=== PATIENT | female | born 1985 | race Hispanic/Latino ===

== ENCOUNTER 2020-09-06 10:31 | Inpatient (IN) | payer BC ==
[~2020-09-06] VITALS: Ht 157.5 cm; Wt 94.2 kg
[~2020-09-06 10:31] MED LIST: CEFD300C3 PO; D-ME118S56 PO; IBUP-2784 PO; LEVO500T89 PO; ONDA-104 PO
[2020-09-06] MEDS ORDERED: KETOROLAC TROMETHAMINE 30MG/ML ONE (11:23)
[2020-09-06 11:26] LABS: BASOPHILS % (AUTO) 0.6 % (0.0-5.0); EOSINOPHILS % (AUTO) 2.4 % (0.0-8.0); HEMATOCRIT 44.8 % (36-48); LYMPHOCYTES % (AUTO) 24.5 % (21.0-51.0); MEAN CORPUSCULAR HGB CONC 33.5 g/dL (32.0-36.0); MEAN CORPUSCULAR VOLUME 83.7 fL (79-99); NEUTROPHILS % (AUTO) 64.3 % (40.0-77.0); PLATELET COUNT (AUTO) 171 K/uL (130-400); RED BLOOD CELL COUNT(AUTO) 5.35 MIL/uL (4.00-5.50); RED CELL DISTRIBUTION WIDTH 13.5 % (11.0-15.5); WHITE BLOOD COUNT (AUTO) 6.5 K/uL (4.8-10.8)
[2020-09-06 11:28] LABS: BILIRUBIN,URINE Negative (NEGATIVE); COLOR,URINE Yellow (YELLOW); GLUCOSE, URINE (UA) Negative (NEGATIVE); KETONES,URINE Negative (NEGATIVE); LEUKOCYTE ESTERASE ,URINE Small (NEGATIVE); NITRATE,URINE Negative (NEGATIVE); OCCULT BLOOD,URINE Large (NEGATIVE); PROTEIN,URINE POS 1+ mg/dL (NEGATIVE)
[2020-09-06 11:29] LABS: APPEARANCE,URINE SLIGHTLY CLOUDY (CLEAR)
[2020-09-06 11:31] LABS: HCG,QUAL RESULT NEGATIVE (NEGATIVE)
[2020-09-06 11:35] LABS: CREATININE 0.9 mg/dL (0.5-1.5); POTASSIUM 4.2 mmol/L (3.5-5.1)
[2020-09-06 11:40] LABS: ALBUMIN 4.2 g/dL (3.5-5.0); BILIRUBIN,TOTAL 0.6 mg/dL (0.2-1.0); TOTAL PROTEIN, SERUM 8.4 g/dL (6.0-8.3)
[2020-09-06 11:54] LABS: RBC,URINE 26-50 /HPF (0-1)
[2020-09-06 11:55] LABS: BACTERIA,URINE Moderate /HPF (None Seen)
[2020-09-06] MEDS ORDERED: IOHEXOL-350 75 ML VIAL IV ONE (12:13)
[2020-09-06] MEDS ORDERED: CEFTRIAXONE SODIUM 1 GM ONE (12:55)
[2020-09-06] MEDS ORDERED: ONDANSETRON HCL 4 MG/2 ML VIAL ONE (14:31)
[2020-09-06] MEDS ORDERED: MORPHINE SULFATE 4 MG/1ML SYG ONE (14:31)
[2020-09-06] MEDS ORDERED: TAMSULOSIN HCL 0.4 MG CAP.ER.24H PO SCH (16:30)
[2020-09-06] MEDS ORDERED: LACTULOSE 20 GM/30 ML UDCUP PO PRN (16:30)
[2020-09-06] MEDS ORDERED: ACETAMINOPHEN 325 MG TAB PO PRN (16:30)
[2020-09-06] MEDS: SODIUM CHLORIDE 0.9% 1000ML 1,000 ML IV SCH ×2 (16:30→18:00)
[2020-09-06] MEDS ORDERED: MORPHINE SULFATE 2 MG/ML 1ML SYG IV PRN (16:30)
[2020-09-06] MEDS: CEFTRIAXONE SODIUM 1 GM IV SCH (16:30)
[2020-09-06] MEDS ORDERED: HYDROCODONE/ACETAMINOPHEN 5/325 MG TAB PO PRN (16:30)
[2020-09-06 18:02] VITALS: BP 114/74
[2020-09-06] MEDS ORDERED: VITA400C73 PO (18:18)
[2020-09-06] MEDS ORDERED: METF-446 PO (18:18)
[2020-09-06] MEDS ORDERED: MEDR10TA11 PO (18:18)
[2020-09-06] MEDS ORDERED: ASCO500C18 PO (18:18)
[2020-09-06 19:37] VITALS: BP 118/69
--- NOTE | 2020-09-06 20:00 | NUR ---
assessment note patient awake alert, ox3, no sob, no c/o pain at this time, encourage po fluids as tolerated , ivf infusing well, teach patient plan of care and expected outcome, patient verbalizes understanding via teach back
[2020-09-07] VITALS: BP 95/68
[2020-09-07 04:00] VITALS: BP 105/71
[2020-09-07] MEDS: CEFTRIAXONE SODIUM 1 GM IV SCH ×2 (04:21→16:27)
[2020-09-07 06:00] LABS: BASOPHILS % (AUTO) 0.5 % (0.0-5.0); EOSINOPHILS % (AUTO) 3.7 % (0.0-8.0); HEMATOCRIT 39.6 % (36-48); LYMPHOCYTES % (AUTO) 30.5 % (21.0-51.0); MEAN CORPUSCULAR HEMOGLOBIN 28.2 pg (27.0-33.0); MEAN CORPUSCULAR HGB CONC 33.3 g/dL (32.0-36.0); MEAN CORPUSCULAR VOLUME 84.6 fL (79-99); MONOCYTES % (AUTO) 10.6 % (3.0-13.0); NEUTROPHILS % (AUTO) 54.4 % (40.0-77.0); PLATELET COUNT (AUTO) 153 K/uL (130-400); RED BLOOD CELL COUNT(AUTO) 4.68 MIL/uL (4.00-5.50); RED CELL DISTRIBUTION WIDTH 13.5 % (11.0-15.5); WHITE BLOOD COUNT (AUTO) 6.2 K/uL (4.8-10.8)
[2020-09-07 06:20] LABS: ALBUMIN 3.3 g/dL (3.5-5.0); BILIRUBIN,TOTAL 0.5 mg/dL (0.2-1.0); CREATININE 0.7 mg/dL (0.5-1.5); POTASSIUM 3.5 mmol/L (3.5-5.1); TOTAL PROTEIN, SERUM 6.9 g/dL (6.0-8.3)
[2020-09-07 08:14] VITALS: BP 107/53
[2020-09-07] MEDS: ENOXAPARIN SODIUM 30 MG/0.3 ML SQ SCH (08:26)
[2020-09-07] MEDS: TAMSULOSIN HCL 0.4 MG CAP.ER.24H PO SCH (08:26)
[2020-09-07] MEDS ORDERED: POTASSIUM CHLORIDE 20 MEQ ERTAB PO SCH (10:15)
--- NOTE | 2020-09-07 10:35 | NUR ---
DR. CARVALHO AWARE OF CONSULT
[2020-09-07 11:24] VITALS: BP 112/73
--- NOTE | 2020-09-07 16:00 | NUR ---
MET W PATIENT FOR DC PLANNING PER PATIENT SHE IS ACTIVE, EMPLOYED, DRIVES, HAS NO DME, HOME HEALTH OR PROVIDER. LIVES WITH KIDS AND SPOUSE [employer] WHO WILL PROVIDE TRANSPORT HOME PATIENT DOES NOT FOLLOW WITH HER PCP DR. PENNINGTON REGULARLY. DCP HOME, CM TO FOLLOW
[2020-09-07 16:25] VITALS: BP 130/66
[2020-09-07] MEDS: METFORMIN HCL 500 MG TABLET PO SCH (16:30)
[2020-09-07] MEDS: SODIUM CHLORIDE 0.9% 1000ML 1,000 ML IV SCH (16:41)
[2020-09-07] MEDS ORDERED: ASCORBIC ACID 500 MG TAB ONE (19:18)
[2020-09-07] MEDS: ASCORBIC ACID 500 MG TAB PO SCH (19:44)
[2020-09-07 20:00] VITALS: BP 123/70
--- NOTE | 2020-09-07 22:47 | NUR ---
transfer per orders of warehouse order puller marivel ware r.n patient to be moved to room 321, informed patient of transfer, report given to lalita owens r.n., transferred patient to room 321 via w/c
[2020-09-08] VITALS: BP 122/73
[2020-09-08 04:00] VITALS: BP 122/81
[2020-09-08] MEDS: CEFTRIAXONE SODIUM 1 GM IV SCH (04:18)
[2020-09-08 05:01] LABS: BASOPHILS % (AUTO) 0.6 % (0.0-5.0); EOSINOPHILS % (AUTO) 5.2 % (0.0-8.0); HEMATOCRIT 40.3 % (36-48); LYMPHOCYTES % (AUTO) 36.7 % (21.0-51.0); MEAN CORPUSCULAR HEMOGLOBIN 27.6 pg (27.0-33.0); MEAN CORPUSCULAR HGB CONC 32.5 g/dL (32.0-36.0); MEAN CORPUSCULAR VOLUME 84.8 fL (79-99); MONOCYTES % (AUTO) 9.4 % (3.0-13.0); PLATELET COUNT (AUTO) 161 K/uL (130-400); RED BLOOD CELL COUNT(AUTO) 4.75 MIL/uL (4.00-5.50); RED CELL DISTRIBUTION WIDTH 13.3 % (11.0-15.5); WHITE BLOOD COUNT (AUTO) 6.8 K/uL (4.8-10.8)
--- NOTE | 2020-09-08 05:18 | NUR ---
PATIENT UPDATE PT SLEPT WELL OVERNIGHT, NO COMPLAINTS OF PAIN. GETS UP TO THE TOILET TO VOID, URINE CLOUDY YELLOW, STRAINED, NO STONES NOTED. CONTINUES WITH HYDRATION WITH NS AT 100 CC/HR. NO COMPLAINTS VOICED OUT. STILL PENDING TO BE SEEN BY DR. OSBORNE FOR CONSULT.
[2020-09-08 05:20] LABS: ALBUMIN 3.2 g/dL (3.5-5.0); BILIRUBIN,TOTAL 0.4 mg/dL (0.2-1.0); CREATININE 0.7 mg/dL (0.5-1.5); POTASSIUM 3.5 mmol/L (3.5-5.1); TOTAL PROTEIN, SERUM 6.8 g/dL (6.0-8.3)
[2020-09-08 07:53] VITALS: BP 102/70
[2020-09-08] MEDS ORDERED: MEDROXYPROGESTERONE ACET 5 MG TAB PO SCH (09:00)
[2020-09-08] MEDS ORDERED: VITAMIN E 400 UNIT CAPSULE PO SCH (09:00)
[2020-09-08] MEDS: TAMSULOSIN HCL 0.4 MG CAP.ER.24H PO SCH (10:30)
[2020-09-08] MEDS: ASCORBIC ACID 500 MG TAB PO SCH (10:30)
[2020-09-08] MEDS: ENOXAPARIN SODIUM 30 MG/0.3 ML SQ SCH (10:31)
[2020-09-08] MEDS: METFORMIN HCL 500 MG TABLET PO SCH (10:33)
[2020-09-08 11:19] VITALS: BP 130/86
--- NOTE | 2020-09-08 11:40 | NUR ---
MET Narcisa COHEN FOR DC PLANNING PER VICKI SHE IS ACTIVE, EMPLOYED, DRIVES, HAS NO DME, HOME HEALTH OR PROVIDER. LIVES WITH KIDS AND SPOUSE [employer] WHO WILL PROVIDE TRANSPORT HOME VICKI DOES NTO HAVE A REGULAR PCP AND ENCOURAGED TO FOLLOW UP WITH ONE. DCP IS HOME, CM TO FOLLOW Addendum: 09/08/20 at 1141 by MOHAN JC RN CM Amended: Links added. Addendum: 09/08/20 at 1143 by MOHAN JC RN CM PER PATIENT DOES NOT FOLLOW W/ HER PCP DR. ADITI RAY
--- NOTE | 2020-09-08 15:41 | NUR ---
PTS IV REMOVED W/O DIFFICULTY OR COMPLICATION. PT STATES UNDERSTANDING OF DISCHARGE INSTRUCTIONS AND FOLLOW UP APPTS. DISMISSED BY W/C IN GOOD CONDITION WITHOUT PAIN OR RESP DIFFICULTY ACCOMPANIED BY THIS NURSE AND SPOUSE.
--- NOTE | 2020-09-11 10:53 | NUR ---
Transitional Care - Post Discharge Note Spoke with patient at number listed. As per Ms Carty she is doing well. She states she will make a follow up appointment with her PCP today. She has made an appointment with the urologist, and is taking her home medications as ordered. Patient is unaware if she has passed the stone yet. She did report still experiencing flank discomfort, but that the ibuprofen was managing it well. The patient was made aware of the importance of follow up appointments and has agreed to keep appointments. Addendum: 09/11/20 at 1059 by TRUPTI ALARCON Amended: Links added.
== END 2020-09-08 15:50 | disposition home or self-care (01) | DRG 690 ==
LOC: EDH 10:31 → EDHIP 16:24 → 3AH 17:28 → 3DH 09-07 22:49
PROVIDERS: ADMIT Family Medicine; ATTEND Family Medicine
DX: N13.6 Pyonephrosis (principal); K74.60 Unspecified cirrhosis of liver; E11.9 Type 2 diabetes mellitus without complications; E66.9 Obesity, unspecified; N21.0 Calculus in bladder; K76.0 Fatty (change of) liver, not elsewhere classified; Z83.3 Family history of diabetes mellitus; Z82.49 Family history of ischemic heart disease and other diseases of the circulatory system; Z68.38 Body mass index [BMI] 38.0-38.9, adult
CPT/HCPCS: 36415; 74177; 80053; 81001; 81025; 82150; 82948; 83690; 84145; 85025; 87040; 87088; G0378; J0696; J1650; J1885; J2270; J2405; J7030; Q9967